=== PATIENT | male | born 1955 ===

== ENCOUNTER 2023-07-18 17:07 | Emergency (ER) | payer OTHER ==
[~2023-07-18] VITALS: Ht 175.3 cm; Wt 115.7 kg
[2023-07-18 17:34] LABS: BASOPHILS ABSOLUTE AUTO 0.08 K/mm3 (0.00-0.23); BASOPHILS PERCENT AUTO 1 % (0-2); EOSINOPHILS ABSOLUTE AUTO 0.35 K/mm3 (0.00-0.68); EOSINOPHILS PERCENT AUTO 3 % (0-6); Hematocrit 48.5 % (37.0-53.0); Hemoglobin 16.3 g/dL (13.5-17.5); IMMATURE GRAN ABSOLUTE AUTO 0.04 K/mm3 (0.00-0.10); IMMATURE GRAN PERCENT AUTO 0 % (0-1); LYMPHOCYTES PERCENT AUTO 28 % (21-46); MONOCYTES ABSOLUTE AUTO 0.93 K/mm3 (0.16-1.47); MONOCYTES PERCENT AUTO 9 % (4-13); Mean Corpuscular HGB 29.9 pg (26.0-34.0); Mean Corpuscular HGB Conc 33.6 g/dL (31.5-36.5); Mean Corpuscular Volume 89 fL (80-100); Mean Platelet Volume 9.4 fL (9.1-12.4); NEUTROPHILS PERCENT AUTO 58 % (41-73); Platelet Count 268 K/mm3 (150-400); RDW Coefficient Variation 13.1 % (11.7-14.2); RDW Standard Deviation 42.5 fL (35.1-46.3); Red Blood Cell Count 5.46 M/mm3 (4.30-5.90)
[2023-07-18 18:02] LABS: Albumin, Blood 3.9 g/dL (3.4-5.0); Albumin/Globulin Ratio 1.1 (0.8-1.8); Bilirubin, Total 0.4 mg/dL (0.1-1.0); Bun/Creatinine Ratio 15.8 (12.0-20.0); Calcium, Blood 9.3 mg/dL (8.5-10.1); Creatinine, Blood 1.01 mg/dL (0.60-1.20); Globulin, Blood 3.7 g/dL (2.2-4.0); Potassium, Blood 4.1 mmol/L (3.5-5.5); Total Protein, Blood 7.6 g/dL (6.4-8.2)
[2023-07-18 23:54] VITALS: BP 143/87
== END 2023-07-18 23:56 | disposition home or self-care (01) ==
LOC: ER 17:07
PROVIDERS: Physician Assistant
DX: R00.2 Palpitations (principal); I25.2 Old myocardial infarction; Z95.5 Presence of coronary angioplasty implant and graft
CPT/HCPCS: 71046; 80053; 84484; 85025; 93005; 93010; 99285-25

== ENCOUNTER 2024-03-20 05:59 | Observation (INO) | payer OTHER ==
[2024-03-20] VITALS (17 sets, daily range): BP systolic 117–168; BP diastolic 64–93
[~2024-03-20] VITALS: Ht 175.3 cm; Wt 116.0 kg
[~2024-03-20 05:59] MED LIST: ASPIR 8181 M1 PO; ATOR40TA PO; RAMI5 PO; TOPROL XL200 MG PO
[2024-03-20] MEDS ORDERED: Verapamil HCL 2.5 MG/ML 2ML Injection ONE (06:26)
[2024-03-20] MEDS ORDERED: Heparin Sodium 1000 Units/ML 10ML MDV ONE ×5 (06:27→09:48)
[2024-03-20] MEDS ORDERED: NS 1,000 ML IV ONE ×2 (06:27→06:53)
[2024-03-20] MEDS ORDERED: Nitroglycerin 2 MG/20 ML BTL ONE (06:27)
[2024-03-20] MEDS ORDERED: NS 250 ML IV ONE (06:27)
[2024-03-20] MEDS ORDERED: EpiNEPhrine 1 MG/1 ML 1ML Vial ONE (07:05)
[2024-03-20] MEDS ORDERED: Atropine Sulfate 0.1 MG/ML 10ML SYR ONE (07:06)
[2024-03-20] MEDS ORDERED: Phenylephrine HCl 100 MCG/ML-NS 10MLSYR (1MG/10ML) ONE (07:06)
[2024-03-20] MEDS ORDERED: FentaNYL Citrate 50 MCG/ML 2 ML Injection ONE ×4 (07:35→09:35)
[2024-03-20] MEDS ORDERED: Midazolam HCl 1MG / ML 2ML Vial ONE ×5 (07:36→09:35)
[2024-03-20] MEDS ORDERED: HydrALAZINE HCl 20 MG / ML 1ML Vial ONE (07:54)
[2024-03-20] MEDS ORDERED: Clopidogrel Bisulfate 300 MG Cap ONE (08:28)
[2024-03-20] MEDS ORDERED: Aspirin 81 MG Chew ONE (08:28)
[2024-03-20] MEDS ORDERED: NS 500 ML IV ONE ×2 (09:32→09:39)
[2024-03-20] MEDS ORDERED: Morphine Sulfate 4 MG/1 ML Injection ONE ×3 (09:36→10:04)
[2024-03-20] MEDS ORDERED: HydrALAZINE HCl 20 MG / ML 1ML Vial IV PRN (10:55)
[2024-03-20] MEDS ORDERED: NS 1,000 ML IV SCH (10:55)
[2024-03-20] MEDS ORDERED: FLU VACC TS2024-25(6MOS UP)/PF 45 MCG/0.5 ML SYRINGE IM SCH (10:55)
[2024-03-20] MEDS ORDERED: Nitroglycerin 0.4 MG SUBL SL PRN (10:55)
--- NOTE | 2024-03-20 10:58 | NUR ---
ASSUMED CARE FROM NEURODIAGNOSTIC TECHNICIAN RECEIVED PT FROM NEURODIAGNOSTIC TECHNICIAN NURSE AT 1058. HE ARRIVED WITH RIGHT WRIST TR BAND INFLATED TO 12ML. SITE IS C/D/I WITHOUT HEMATOMA FORMATION. RIGHT GROIN PCI SITE WITH TEGADERM, NO HEMATOMA OR OOZING. GROIN IS SOFT AND NONTENDER. CONTINUOUS CARDIAC MONITORING IN PLACE. SYSTOLIC BP >150, MAP >100. PT IS ON ROOM AIR, SPO2 >96. EKG PERFORMED ON ARRIVAL PER IN STORE REPRESENTATIVE ORDER. PT IS ALERT AND ORIENTED TO SELF, PLACE, SITUATION AND TIME. HE IS ABLE TO ANSWER QUESTIONS AND OBEY COMMANDS.
--- NOTE | 2024-03-20 18:28 | NUR ---
SHIFT SUMMARY. PT HAS BEEN ALERT AND ORIENTED X4, HE IS ABLE TO ANSWER QUESTIONS APPROPRIATELY AND OBEYS COMMANDS. HE IS AWARE OF LIMITATIONS AND FOLLOWS THEM. PT HAS R-FEMORAL PCI SITE THAT IS SOFT, NONTENDER, WITH NO HEMATOMA FORMATION. THE TEGADERM IS C/D/I. PT HAS R-RADIAL PCI SITE, TR BAND WAS REMOVED AT 1806. NO OOZING, HEMATOMA FORMATION, OR DISCOMFORT FOR PT. TEGADERM IN PLACE WITH WRIST BRACE. PATIENT EDUCATED ON IMMOBILIZING WRIST. HE IS MOTIVATED TO STAND AND WALK. PT IS ON CONTINUOUS CARDIAC MONITORING, HE HAS 1ST DEGREE BLOCK. HR IN 50-60S. SYSTOLIC BP >120. MAP >70. HE IS ON RA, SPO2 >96. HIS RESPIRATIONS ARE EVEN AND UNLABORED. PT UTILIZES BEDSIDE URINAL INDEPENDENTLY AND HAS HAD YELLOW OUTPUT HOURLY. PT HAD GOOD APPETITE AND ATE 90% OF BREAKFAST AND LUNCH. BED IN LOWEST POSITION, CALL LIGHT IN REACH.
[2024-03-20] MEDS ORDERED: Atorvastatin 40 MG Tab PO SCH (21:00)
[2024-03-21 03:35] LABS: Hematocrit 43.3 % (37.0-53.0); Hemoglobin 14.5 g/dL (13.5-17.5); Mean Corpuscular HGB 29.8 pg (26.0-34.0); Mean Corpuscular HGB Conc 33.5 g/dL (31.5-36.5); Mean Corpuscular Volume 89 fL (80-100); Mean Platelet Volume 9.6 fL (9.1-12.4); Platelet Count 222 K/mm3 (150-400); RDW Coefficient Variation 13.6 % (11.7-14.2); RDW Standard Deviation 44.2 fL (35.1-46.3); Red Blood Cell Count 4.86 M/mm3 (4.30-5.90); White Blood Cell Count 11.69 K/mm3 (4.00-11.30)
[2024-03-21 03:36] VITALS: BP 150/69
[2024-03-21 04:10] LABS: Anion Gap 12 mmol/L (3-11); Blood Urea Nitrogen 15 mg/dL (8-24); Bun/Creatinine Ratio 16.5 (12.0-20.0); CHOL/HDL RATIO 3.2; CO2, Blood 25 mmol/L (21-32); Calcium, Blood 9.1 mg/dL (8.5-10.1); Chloride, Blood 107 mmol/L (98-108); Cholesterol 109 mg/dL (50-200); Creatinine, Blood 0.91 mg/dL (0.60-1.20); Glomerular Filtration Rate 90 (60-); Glucose, Blood 112 mg/dL (70-99); HDL Cholesterol 34 mg/dL (>39); LDL/HDL RATIO 1.3; Low Density Lipoprotein Chol 44 mg/dL (0-110); Potassium, Blood 3.9 mmol/L (3.5-5.5); Sodium, Blood 140 mmol/L (136-145); Triglycerides 155 mg/dL (30-160); Very Low Density Lipoprot Chol 31 mg/dL (6-32)
--- NOTE | 2024-03-21 04:55 | NUR ---
SHIFT SUMMARY: PT A/Ox4 AND PLEASANT WITH CARE, USES CALL LIGHT AND ABLE TO MAKE NEEDS KNOWN. MONITOR SHOWS RYTHM OF 1ST DEGREE HB W/BBB, RATE 50s-70s. SBP 130s-150s, MAP>65.PT HAS DENIED CHEST PAIN OR PRESSURE ALL NIGHT. SPO2>90% ON RA, DENIES SOB. RIGHT RADIAL, RIGHT BRACHIAL, AND RIGHT GROIN SITES ALL W/TEGADERM IN PLACE, NO SIGNS OF BLEEDING OR HEMATOMA. PT ABLE TO USE URINAL AT BEDSIDE W/GOOD OUTPUT THIS SHIFT. PT UP TO CHAIR THROUGHOUT THE NIGHT WITH SBA, NO COMPLAINTS OF DIZZINESS OR WEAKNESS. WILL REPORT TO ONCOMING RN.
[2024-03-21 07:43] VITALS: BP 151/81
[2024-03-21] MEDS ORDERED: Aspirin 81 MG TabEC PO SCH (09:00)
[2024-03-21] MEDS ORDERED: Metoprolol Succinate 50 MG TABCR PO SCH (09:00)
[2024-03-21] MEDS ORDERED: Lisinopril 20 MG Tab PO SCH (09:00)
[2024-03-21] MEDS ORDERED: Clopidogrel Bisulfate 75 MG Tab PO SCH (09:00)
[2024-03-21] MEDS ORDERED: Metoprolol Succinate 25 MG TABCR PO SCH (09:20)
--- NOTE | 2024-03-21 09:26 | NUR ---
ASSUMED CARE. PT AWAKE IN BED, LAYING ON SIDE. HE IS ALERT AND PARTICIPATES IN BSSR. PT COMPLAINS THAT HE WAS UNABLE TO SLEEP WELL LAST NIGHT. VISUALIZED RIGHT GROIN AND RIGHT WRIST PCI INSERTION SITES. BOTH SIDES ARE C/D/I SOFT WTIH NO HEMATOMA FORMATION OR OOZING. PT IS ON CONTINUOUS CARDIAC MONITORING WITH SYSTOLIC BP >140, MAP >100. HR IS 50-60S. PT RESPIRATIONS ARE EVEN AND UNLABORED. PT IS VOIDING IN BSC, CLEAR YELLOW URINE. BED IN LOWEST POSITION, CALL LIGHT IN REACH.
[2024-03-21] MEDS ORDERED: METO25ER PO (10:05)
--- NOTE | 2024-03-21 10:38 | NUR ---
SHIFT SUMMARY/PT DISCHARGED REMOVED PT LEFT UPPER ARM PIV, CATHETER WAS INTACT AND SITE WAS W/O REDNESS OR SWELLING. PT RESPONDED WELL TO PROCEDURE. PLACED GAUZE AND COBAND. R-RADIAL AND R-FEMORAL PCI SITE TEGADERM C/D/I, NO OOZING OR HEMATOMA FORMATION. PT EDUCATED ON DISCHARGE INSTRUCTIONS AND TO KEEP WRIST IMMOBILIZED FOR 48 HOURS. PT VERBALIZED UNDERSTANDING. MEDICATION FAXED TO PHARMACY. PATIENT WALKED OUT W/ TO THEIR VEHICLE.
== END 2024-03-21 11:00 | disposition home or self-care (01) ==
LOC: MHTC 05:59 → ICUE 10:30 → MHTC 10:31 → ICUE 10:32
PROVIDERS: ADMIT Internal Medicine Cardiovascular Disease
DX: I25.118 Atherosclerotic heart disease of native coronary artery with other forms of angina pectoris (principal); T82.855A Stenosis of coronary artery stent, initial encounter; I25.2 Old myocardial infarction; I44.0 Atrioventricular block, first degree; R00.1 Bradycardia, unspecified; E78.2 Mixed hyperlipidemia; Z87.891 Personal history of nicotine dependence; Z79.82 Long term (current) use of aspirin; Z79.899 Other long term (current) drug therapy
CPT/HCPCS: 36415; 76937; 80048; 80061; 85027; 85347; 92972; 93005; 93010; 93454; 93571; 94760; 99152; 99153; A9270; C1725; C1760; C1761; C1769; C1874; C1887; C1894; C9600; C9601; G0378; J0171; J0360; J0461; J1644; J2250; J2270; J2371; J3010; J7030; J7040; J7050; Q9967